=== PATIENT | female | born 1995 | race Caucasian/White ===

== ENCOUNTER 2018-08-18 05:35 | Day surgery (SDC) | payer OTHER ==
[~2018-08-18] VITALS: Ht 170.2 cm; Wt 88.5 kg
--- NOTE | ~2018-08-18 | O ---
[facility] [place] [address] OPERATIVE REPORT Name: LAUREL NUÑEZ Room #: 150-3 [facility]#: [id number] Admission: 08/18/18 Attend Phys: Ras Schreiber MD Discharge: Date of : 89 Report #: [id number] THIS REPORT FOR: //name// CC: Ras Merlos DATE OF SERVICE: 08/18/2018 PREOPERATIVE DIAGNOSES: Deviated nasal septum and turbinate hypertrophy. POSTOPERATIVE DIAGNOSES: Deviated nasal septum and turbinate hypertrophy. PROCEDURE: Nasal septal reconstruction, inferior turbinate cauterization with submucous resection with outfracturing. SURGEON: Ras Schreiber M.D. ANESTHESIA: General LMA. INDICATIONS: See H and P. FINDINGS: Quadrangular cartilage had a generalized bowing superiorly to the right side. There was a large spur involving the vomer spurring substantially to the right side, impacting against the inferior turbinate. There is a deviation off the maxillary crest along the entire right nasal floor. The left inferior turbinate was hypertrophied severely. The right inferior turbinate was collapsed due to the deviation. TECHNIQUE: After obtaining consent, she was brought to the operating suite, appropriate time-out was performed. General LMA anesthesia was obtained, the bed was turned 90 degrees, placed in a modified Alfreda position. The nose was prepped and draped in usual sterile fashion. Cottonoids with Afrin were placed in the nares to vasoconstrictive turbinates. 6 mL of 1% Xylocaine and 1:100,000 epinephrine was injected on each side of the septum. Later in the case, an additional 2 mL was injected at each inferior turbinate. Total local anesthetic of 10 mL. A right-sided hemitransfixion was performed with elevation of a mucosal flap on the left side exposing the quadrangular cartilage and the anterior portion of the vomer and perpendicular plate. Due to the large deviation, a somewhat trapezoid piece of quadrangular part cartilage was harvested, care being made to leave enough anteriorly and superiorly for tip support. The bony cartilaginous junction was disarticulated superiorly. I then elevated the mucosal flap off the vomer spurring on the right side to expose as much of the spur as possible with Amanda scissors. Nasra forceps were used along with Ceci forceps to remove a large spur in a piecemeal fashion. I then [address] [address] OPERATIVE REPORT Name: LEONELA NUÑEZN Casandra Room #: 150-3 [facility]#: [id number] Admission: 08/18/18 Attend Phys: Ras Schreiber MD Discharge: Date of : 89 Report #: [id number] returned along the nasal floor, elevated mucosa off the maxillary crest and removed the deviation as much as I could on the right side as well. This allowed for the septum to be more back in midline with great improvement on the right nasal space. Previously harvested cartilage was trimmed, morcellized, placed back between the septal folds. There was a septal mucosal tear on the right inferior floor, only no adjacent tears on the left side were noted. Hemitransfixion incision was closed with simple interrupted 4-0 chromic suture. Simple splints were designed and fashioned by myself, placed in each side of the septum and secured with 3-0 Prolene suture. Inferior turbinate was medialized with Boies elevator. Submucous resection was performed on the medial and medial inferior surface, more care being made to reduce the left than the right side. On the right side, essentially trimmed the inferior edge, which was pushing towards the medial portion of the septum. Each inferior turbinate was outfractured improving the airway further. A single Merogel was trifolded and placed between the septum and the turbinates to allow for lateralization of the turbinate. She was allowed to awaken from anesthesia, so that could be returned to Anesthesia and taken to the recovery room in stable condition. ESTIMATED BLOOD LOSS: 20 mL. By: [id number] Ras Schreiber MD /mervin
[~2018-08-18 05:35] MED LIST: ALBUTEROL2.5 MG/31 INH; AUGMENTIN 875-1 EACH PO; FLONASE 0.05%50 MCG NASAL; IBUPROFEN 200200 M1 PO; IRON325 PO; PHENTERMINE H37.5 M1 PO; PROAIR HFA8.5 GM INH; ZYRTEC10 MG PO
[2018-08-18 07:21] VITALS: BP 134/87
[2018-08-18 07:40] LABS: HEMATOCRIT 40.4 % (37.0-47.0); MCH 29.3 pg (26.0-34.0); MCHC 34.6 g/dL (28.0-37.0); MCV 84.8 fL (80.0-100.0); RBC 4.76 mil/uL (4.20-5.00); RDW 13.5 % (10.5-14.5); WBC 9.5 thou/uL (4.0-11.0)
== END 2018-08-18 10:45 | disposition home or self-care (01) ==
LOC: OR 05:35 → TBA 05:36 → OR 06:32
PROVIDERS: Otolaryngology
DX: J34.2 Deviated nasal septum (principal); J34.3 Hypertrophy of nasal turbinates; J45.909 Unspecified asthma, uncomplicated; D64.9 Anemia, unspecified; F17.210 Nicotine dependence, cigarettes, uncomplicated; Z79.899 Other long term (current) drug therapy
CPT/HCPCS: 50010; 50101; 50386; 50398; 51316; 51634; 53635; 56526; 56528; 62110; 62900; 64037; 70005